=== PATIENT | male | born 1995 | race Caucasian/White ===

== ENCOUNTER 2016-05-09 10:39 | Emergency (ER) | payer OTHER ==
[2016-05-09] MEDS ORDERED: IBUPROFEN 600 MG TAB PO ONE (11:39)
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
[2016-05-09 12:56] VITALS: BP 135/78; PULSE 81; RESP 17; TEMP 98.4; O2SAT 96
== END 2016-05-09 12:56 | disposition home or self-care (01) ==
DX: S16.1XXA Strain of muscle, fascia and tendon at neck level, initial encounter (principal); V49.40XA Driver injured in collision with unspecified motor vehicles in traffic accident, initial encounter; Y92.410 Unspecified street and highway as the place of occurrence of the external cause